=== PATIENT | female | born 1980 | race Caucasian/White ===

== ENCOUNTER 2017-08-06 06:27 | Emergency (ER) | payer OTHER ==
[~2017-08-06] VITALS: Ht 167.6 cm; Wt 129.1 kg
[2017-08-06 06:33] VITALS: TEMP 36.9; Ht 167.6 cm; Wt 129.1 kg
[2017-08-06] MEDS ORDERED: CYCLOBENZAPRINE HCL 5 MG TAB PO STA (06:58)
[2017-08-06] MEDS ORDERED: KETOROLAC TROMETHAMINE 60 MG/2 ML VIAL IM STA ×2 (06:58→07:00)
[2017-08-06] MEDS ORDERED: CYCLOBENZAPRINE HCL 10 MG TAB PO STA (07:00)
--- NOTE | 2017-08-06 07:09 | EMERGENCY ROOM VISIT NOTE ---
History First contact with patient: 06:38 Chief Complaint: HIP PAIN Stated Complaint: HIP PAIN, PINCHED NERVE History of Present Illness The patient is a 37 year old female with hx of sciatica and lumbar disk(s) who presents to the Emergency Room with complaints of L sided hip pain radiating to L knee x 5 days. Started after she reached over to wipe her dashboard. Believes she might have pinched a nerve or pulled something. Pain is sharp, intermittent , 9/10 and worse with movement. Relieves with rest. A/w numbness/tingling near hip region. Denies any fever, bowel or bladder incontinence, or any other symptoms. Hx of sciatica on R but not as bad. Otherwise reports being healthy and not on any medications. Allergic to naproxen but can tolerate ibuprofen. Review of Systems see below Constitutional: No fever, No chills Respiratory: No shortness of breath Cardiovascular: No chest pain Abdomen: No pain, No nausea, No vomiting, No diarrhea, No constipation Musculoskeletal: + problem reported (L hip pain ) Genitourinary - Female: No dysuria, No urinary incontinence Social History Smoking Status: Current Every Day Smoker Current/Historical Medications Scheduled PRN Cyclobenzaprine Hcl (Flexeril), 1 TAB PO TID PRN for Pain Physical Exam Vital Signs Date Time Temp Pulse Resp B/P (MAP) Pulse Ox O2 Delivery O2 Flow Rate FiO2 08/06/17 06:33 36.9 78 20 145/86 97 Room Air Physical Exam see below General Appearance: no apparent distress Head: normocephalic, atraumatic Eyes: normal inspection ENT: normal ENT inspection Neck: supple Respiratory/Chest: normal breath sounds, no respiratory distress Cardiovascular: regular rate, rhythm, no murmur Back: normal inspection, + pertinent finding (TTP over L4/L5 spinous processes and L sided lumbar paraspinal TTP) Extremities: normal inspection, no pedal edema Neurologic/Psych: 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, no motor/sensory deficits ( hesistant to comply with L hip strength testing due to pain ), alert, oriented x 3 Medical Decision & Procedures Medications Administered Medications (Trade) Dose Ordered Sig/Maryjane Route Start Time Stop Time Status Last Admin Dose Admin Cyclobenzaprine HCl (Flexeril Tab) 5 mg NOW STAT PO 08/06/17 07:00 4/17/18 07:02 DC 08/06/17 07:14 5 MG Ketorolac Tromethamine (Toradol Inj) 60 mg NOW STAT IM 08/06/17 07:00 08/06/17 07:02 DC 08/06/17 07:14 60 MG Medical Decision 37y/o with hx of sciatica and lumbar disk(s) who presents to the Emergency Room with complaints of L sided hip pain radiating to L knee x 5 days. No red flag symptoms such as fever, urinary/bowel incontinence or saddle anesthesia. Concerning for likely lumbar radiculopathy vs. lumbar strain. -Ordered lumbar xray: consistent with focal degenerative changes at L4-5 with suspected osseous neural foraminal narrowing at this level -Ordered Toradol 60mg once and flexeril 5mg once -Evaluated at 6:50 -Re-evaluated at 8:08 and reports improvement in pain -Discharged in stable condition with PCP follow up in 1 week; flexeril 5mg TID PRN and ibuprofen up to 800mg Q8H for pain as needed Medication Reconcilliation Current Medication List: was personally reviewed by [place] Blood Pressure Screening Patient's blood pressure: Elevated blood pressure Impression Primary Impression: Lumbar radiculopathy Resident Involvement: Resident Care Provided Care Provided: Adult ED Departure Information Dispostion Home / Self-Care Condition GOOD Prescriptions Cyclobenzaprine Hcl (FLEXERIL) 5 Mg Tab 1 TAB PO TID Y for Pain for 10 Days, #30 TAB Prov: Burke Chin M.D. 08/06/17 Referrals No Doctor, Assigned (PCP) Patient Instructions My [facility] Work Instructions Return To Work: 1 day Additional Work Instructions: Patient evaluated for medical condition today, 08/06/17. Pateint can return to work on 08/07/17. Thank you.
--- NOTE | 2017-08-06 07:37 | DIAGNOSTIC IMAGING REPORT ---
L-SPINE MIN 4 VIEWS ROUTINE CLINICAL HISTORY: 37 years-old Female presenting with L sided low back pain . TECHNIQUE: Frontal, bilateral oblique, lateral, and coned in lateral views lumbar spine were obtained. COMPARISON: None. FINDINGS: No significant scoliosis. Normal lumbar lordosis. Vertebral bodies maintain normal height and alignment. Intervertebral disc height loss noted at L4-5 and to a lesser extent at L5-S1. Osteophytosis evident at L4-5. Mild osseous neural foraminal narrowing may be present at L4-5. No compression deformity or subluxation. Cholecystectomy clips noted. IMPRESSION: 1. No radiographic evidence of acute osseous injury of the lumbar spine. 2. Focal degenerative changes at L4-5 with suspected osseous neural foraminal narrowing at this level. Electronically signed by: Aidan Gil M.D. 08/06/2017 7:36 AM Dictated Date/Time: 08/06/2017 7:34 AM
[2017-08-06] MEDS ORDERED: CYCL5TAB PO (08:08)
[2017-08-06 08:35] VITALS: BP 128/69; PULSE 60; O2SAT 97
--- NOTE | 2017-08-07 06:57 | EMERGENCY ROOM VISIT NOTE ---
ED Visit Note First contact with patient: 06:38 Resident Physician Supervision Note: I interviewed and examined the patient. Discussed with Dr. Chin and agree with findings and plan as documented in the note. Any exceptions or clarifications are listed here: X-rays of the lumbar spine were reviewed. Patient's symptoms are felt to be likely secondary to lumbar radiculopathy. The patient is overweight and is noted to have at least one elevated blood pressure. She was advised to follow- up with her PCP. She may require physical therapy and weight management. Patient will be discharged to use ibuprofen every 6 hours as needed for pain as well as Flexeril for muscular spasm. She will return to the ER for worsening of symptoms or any medical concerns. Documented By: Divya Price
== END 2017-08-06 08:53 | disposition home or self-care (01) ==
LOC: C.EDB 06:29
DX: M54.16 Radiculopathy, lumbar region (principal); F17.210 Nicotine dependence, cigarettes, uncomplicated